=== PATIENT | male | born 1985 | race Caucasian/White ===

== ENCOUNTER 2020-09-26 15:26 | Emergency (ER) | payer OTHER, MEDICAID ==
--- NOTE | 2020-09-26 16:22 | ED Physician Documentation ---
PD HPI UPPER EXT INJURY - Stated complaint Stated Complaint: RT ELBOW INJ - Chief complaint Chief Complaint: Ext Problem - History obtained from History obtained from: Family - History of Present Illness Location: Right, Elbow Type of injury: Fall Where injury occurred: Work Timing - onset: How many weeks ago (1) Timing - duration: Weeks (1) Timing - details: Abrupt onset, Still present Improved by: Rest, Immobilization Worsened by: Moving, Palpating Associated symptoms: Swelling, Discolored. No: Weakness, Numbness Contributing factors: No: Anticoagulated Similar symptoms before: Has not had sx before Recently seen: Not recently seen - Additonal information Additional information: Previously well 34-year-old male who does not have a doctor was at work and he slipped on a wet floor and fell onto his right elbow. He had a small laceration to this. He did not come in for that laceration and now he has a bit of an infection surrounding this. This incident occurred about 1 week ago. The patient had a rough night of sleep last night because of this pain waking him up. This morning he noted that there is redness around the entire elbow. He did have some serous drainage from this last night. He has not had fever and he has not otherwise been ill. He does not feel like he broke a bone in his elbow. Review of Systems Constitutional: denies: Fever Eyes: denies: Decreased vision Ears: denies: Ear pain Nose: denies: Congestion Throat: denies: Sore throat Cardiac: denies: Chest pain / pressure, Palpitations Respiratory: denies: Dyspnea, Cough GI: denies: Abdominal Pain, Nausea, Vomiting, Diarrhea : denies: Dysuria, Frequency Skin: reports: Laceration (s). denies: Rash Musculoskeletal: reports: Extremity pain, Extremity swelling. denies: Neck pain, Back pain Neurologic: denies: Generalized weakness, Focal weakness, Numbness PD PAST MEDICAL HISTORY - Present Medications Home Medications: Ambulatory Orders Medication Instructions Recorded Confirmed Amox/Clav 875/125 [Augmentin] 1 each PO Q12H #14 tablet 09/26/20 - Allergies Allergies/Adverse Reactions: Allergies Allergy/AdvReac Type Severity Reaction Status Date / Time No Known Drug Allergies Allergy Verified 09/26/20 15:41 PD ED PE NORMAL - General General: Alert and oriented X 3, No acute distress, Well developed/nourished - HEENT HEENT: Atraumatic, PERRL, EOMI - Cardiac Cardiac: No murmur - Derm Derm: Normal color, Warm and dry, No rash - Extremities Extremities: No deformity, No edema, Other (There is erythema to the olecranon process and a 2 cm laceration that is healing and without obvious drainage. 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 No evidence of abscess formation. We will treat him for cellulitis with Keflex and expect resolution. The patient indicates he has had trouble with keflex previously and prefers amoxicillin. He is prescribe augmentin. Departure - Departure Disposition: 01 Home, Self Care Clinical Impression: Cellulitis Qualifiers: Site of cellulitis: extremity Site of cellulitis of extremity: upper extremity Laterality: right Qualified Code(s): L03.113 - Cellulitis of right upper limb Condition: Stable Instructions: ED Infec Skin Cellulitis Follow-Up: [facility] [Provider Group] Prescriptions: Amox/Clav 875/125 [Augmentin] 1 each PO Q12H #14 tablet Forms: Activity restrictions Discharge Date/Time: 09/26/20 16:40
--- NOTE | 2020-09-26 16:39 | XRAY Report ---
PROCEDURE: Elbow 2 View RT INDICATIONS: fall TECHNIQUE: 2 views of the elbow were acquired. COMPARISON: None FINDINGS: Bones: No fractures or dislocations. No suspicious bony lesions. Soft tissues: Minimal elbow joint effusion. No suspicious soft tissue calcifications. IMPRESSION: No visualized acute fracture or dislocation. However, occult injury cannot be excluded. Recommend raphael rt interval imaging follow-up in 7-10 days as clinically indicated for additional evaluation. Reviewed by: Kamilah Dill MD on 09/26/2020 4:38 PM PDT Approved by: Kamilah Dill MD on 09/26/2020 4:38 PM PDT Station ID: [id number]
== END 2020-09-26 16:40 | disposition home or self-care (01) ==
LOC: ED 15:26
DX: L03.113 Cellulitis of right upper limb (principal); S51.011A Laceration without foreign body of right elbow, initial encounter; W01.0XXA Fall on same level from slipping, tripping and stumbling without subsequent striking against object, initial encounter; Y99.0 Civilian activity done for income or pay
CPT/HCPCS: 1040M; 99283; 99284

== ENCOUNTER 2020-10-19 07:48 | Emergency (ER) | payer OTHER, MEDICAID ==
--- NOTE | 2020-10-19 08:02 | ED Physician Documentation ---
PD HPI SKIN - Stated complaint Stated Complaint: RT ELBOW WOUND - Chief complaint Chief Complaint: Ext Problem - History obtained from History obtained from: Patient - History of Present Illness Timing - onset: How many weeks ago (3) Timing - duration: Weeks (3) Timing - details: Gradual onset, Still present, Waxing and waning (He states the area filled with some fluid and it opened and drained when he fell on it again. It drained again last week. Continues with redness and some tender. No more fluid accumulation, but is having some ongoing weeping. Minimal improvement initially with just the oral abx, more with draining.) Location: RUE (posterior elbow) Quality / character: Discolored (red), Swelling, Draining (at times) Improved by: No: Antibiotics Associated symptoms: No: Fever, Myalgias, Joint pain (just the skin back of elbow) Contributing factors: No: Insect bite /sting Similar symptoms before: Has not had sx before Recently seen: Emergency Dept Review of Systems Constitutional: denies: Fever, Chills Neurologic: denies: Focal weakness, Numbness PD PAST MEDICAL HISTORY - Past Medical History Cardiovascular: None Endocrine/Autoimmune: None - Present Medications Home Medications: Ambulatory Orders Medication Instructions Recorded Confirmed Amox/Clav 875/125 [Augmentin] 1 each PO Q12H #14 tablet 09/26/20 Amox/Clav 875/125 [Augmentin] 1 each PO BID #10 tablet 10/19/20 Mupirocin Calcium [Mupirocin] 1 applic TP TID #15 gm 10/19/20 - Allergies Allergies/Adverse Reactions: Allergies Allergy/AdvReac Type Severity Reaction Status Date / Time No Known Drug Allergies Allergy Verified 10/19/20 07:59 PD ED PE NORMAL - Vitals Vital signs reviewed: Yes - General General: Alert and oriented X 3, No acute distress (somewhat anxious), Well developed/nourished - Derm Derm: Normal color, Warm and dry - Extremities Extremities: Other (right posterior elbow with skin small ulceration without fluctuance. No effusion in bursa nor joint. Full extension of the elbow. There is surrounding redness of the wound about 3 cm diameter. No axillary nodes. ) - Neuro Neuro: No motor deficit, No sensory deficit Results - Vitals Vitals: Oxygen O2 Source Room air PD MEDICAL DECISION MAKING - ED course Complexity details: reviewed old records, considered differential (I think he would benefit with more staph coverage and had not really improved with the Augmentin initially. Suggested doxycycline but he firmly prefers a penicillin- based.), d/w patient Departure - Departure Disposition: 01 Home, Self Care Clinical Impression: Cellulitis of right elbow Condition: Stable Record reviewed to determine appropriate education?: Yes Instructions: ED Infec Skin Cellulitis Prescriptions: Amox/Clav 875/125 [Augmentin] 1 each PO BID #10 tablet Mupirocin Calcium [Mupirocin] 1 applic TP TID #15 gm Comments: Clean the elbow wound 2-3 times daily and apply a light bit of mupirocin antibiotic ointment. Augmentin antibiotic twice daily for the next 5 days until this seems completely cleared. The Augmentin antibiotic did not clear this the first go around so I do not think it will clear completely this time either. I would prefer giving you an antibiotic called doxycycline. Return if this is not completely cleared and we can try a different antibiotic. Discharge Date/Time: 10/19/20 09:06
[2020-10-19 08:10] VITALS: BP 128/82
[2020-10-19] MEDS ORDERED: MUPIROCIN 2% OINT 1 GM TOP STA (08:28)
[2020-10-19] MEDS: DOXYCYCLINE 100 MG TABLET PO STA ×2 (08:36→09:02)
== END 2020-10-19 09:06 | disposition home or self-care (01) ==
LOC: ED 07:48
DX: L03.113 Cellulitis of right upper limb (principal); L98.499 Non-pressure chronic ulcer of skin of other sites with unspecified severity
CPT/HCPCS: 99282; 99283; A9270

== ENCOUNTER 2020-12-26 15:45 | Outpatient (CLI) | payer MEDICAID | END 2020-12-26 15:46 | disposition critical access hospital (66) | LOC: EMS 15:45 | DX: S01.91XA Laceration without foreign body of unspecified part of head, initial encounter (principal); V18.4XXA Pedal cycle driver injured in noncollision transport accident in traffic accident, initial encounter; Y93.55 Activity, bike riding; Y92.828 Other wilderness area as the place of occurrence of the external cause | CPT/HCPCS: A0425; A0429; A0999 ==

== ENCOUNTER 2020-12-26 16:01 | Emergency (ER) | payer MEDICAID ==
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
[2020-12-26] MEDS ORDERED: IBUPROFEN 600 MG TABLET PO STA (16:16)
[2020-12-26] MEDS ORDERED: ACETAMINOPHEN 325 MG TABLET PO STA (16:16)
[2020-12-26] MEDS ORDERED: LIDOCAINE-EPINEPH-TETRACAINE 3 ML SYRINGE TOP STA (16:19)
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
[2020-12-26 18:07] VITALS: BP 136/89
== END 2020-12-26 18:17 | disposition home or self-care (01) ==
LOC: EDUNIT# → ED 16:01
DX: S01.81XA Laceration without foreign body of other part of head, initial encounter (principal); S00.83XA Contusion of other part of head, initial encounter; S01.01XA Laceration without foreign body of scalp, initial encounter; S01.21XA Laceration without foreign body of nose, initial encounter; S50.312A Abrasion of left elbow, initial encounter; S50.311A Abrasion of right elbow, initial encounter; S80.212A Abrasion, left knee, initial encounter; S80.211A Abrasion, right knee, initial encounter; V18.0XXA Pedal cycle driver injured in noncollision transport accident in nontraffic accident, initial encounter; Y93.55 Activity, bike riding; Y92.410 Unspecified street and highway as the place of occurrence of the external cause
CPT/HCPCS: 12013; 36415; 70450; 72125; 99282; 99284; A9270

== ENCOUNTER 2020-12-28 07:20 | Emergency (ER) | payer MEDICAID ==
[2020-12-28 07:28] VITALS: BP 135/72
[2020-12-28] MEDS ORDERED: ACETAMINOPHEN 325 MG TABLET PO STA (07:45)
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
== END 2020-12-28 09:15 | disposition home or self-care (01) ==
LOC: ED 07:20
DX: M25.511 Pain in right shoulder (principal); V18.0XXA Pedal cycle driver injured in noncollision transport accident in nontraffic accident, initial encounter; Y93.55 Activity, bike riding; M62.441 Contracture of muscle, right hand; G09 Sequelae of inflammatory diseases of central nervous system
CPT/HCPCS: 73030; 99283; A9270

== ENCOUNTER 2021-01-05 15:16 | Emergency (ER) | payer MEDICAID ==
[2021-01-05 15:34] VITALS: BP 142/73
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
== END 2021-01-05 15:45 | disposition home or self-care (01) ==
LOC: ED 15:16
DX: Z48.02 Encounter for removal of sutures (principal)
CPT/HCPCS: 99281

== ENCOUNTER 2021-03-07 09:50 | Emergency (ER) | payer MEDICAID ==
[2021-03-07 10:00] VITALS: BP 147/91
--- NOTE | 2021-03-07 10:41 | ED Physician Documentation ---
History of Present Illness - Stated complaint Stated Complaint: DIZZY - Chief complaint Chief Complaint: Neuro - History obtained from History obtained from: Patient - History of Present Illness Timing: How many weeks ago (1) - Additonal information Additional information: 35-year-old male with a prior history of spinal meningitis has developed some lightheadedness and dizziness and states that he has had this maybe 4 times previously and he is now experiencing this again. He denies a change in his vision is with head movement. Denies any hearing loss or tinnitus. Denies any cough or congestion. Review of Systems Constitutional: denies: Fever Eyes: denies: Decreased vision Ears: denies: Ear pain Nose: denies: Congestion Throat: denies: Sore throat Cardiac: denies: Chest pain / pressure, Palpitations Respiratory: denies: Dyspnea, Cough GI: denies: Abdominal Pain, Nausea, Vomiting : denies: Dysuria, Frequency Skin: denies: Rash Musculoskeletal: denies: Neck pain, Back pain, Extremity pain Neurologic: reports: Other (dizziness and light headedness). denies: Generalized weakness, Focal weakness, Numbness, Headache, Head injury, LOC PD PAST MEDICAL HISTORY - Past Medical History Cardiovascular: None Respiratory: None Neuro: None, Head injury Endocrine/Autoimmune: None GI: GERD, Ulcers : None HEENT: None Psych: Anxiety Musculoskeletal: None Derm: None - Past Surgical History Past Surgical History: No - Present Medications Home Medications: Ambulatory Orders Medication Instructions Recorded Confirmed No Known Home Medications 03/07/21 03/07/21 - Allergies Allergies/Adverse Reactions: Allergies Allergy/AdvReac Type Severity Reaction Status Date / Time No Known Drug Allergies Allergy Verified 03/07/21 09:57 - Social History Does the pt smoke?: No Smoking Status: Never smoker Does the pt drink ETOH?: No Does the pt have substance abuse?: No - Immunizations Immunizations are current?: Yes - POLST Patient has POLST: No PD ED PE NORMAL - Vitals Vital signs reviewed: Yes (hypertensive ) - General General: Alert and oriented X 3, No acute distress, Well developed/nourished - HEENT HEENT: Atraumatic, PERRL, EOMI - Neck Neck: Supple, no meningeal sign, No bony TTP - Cardiac Cardiac: RRR, No murmur - Respiratory Respiratory: No respiratory distress, Clear bilaterally - Abdomen Abdomen: Normal bowel sounds, Soft, Non tender, Non distended, No organomegaly - Back Back: No CVA TTP, No spinal TTP - Derm Derm: Normal color, Warm and dry, No rash - Extremities Extremities: Other (There is contraction deformity of the right hand from the prior spinal meningitis.) - Neuro Neuro: Alert and oriented X 3, sewer digger 2-12 intact, Normal speech Eye Opening: Spontaneous Motor: Obeys Commands Verbal: Oriented GCS Score: 15 - Psych Psych: Normal mood, Normal affect Results - Vitals Vitals: Vital Signs - 24 hr 03/07/21 09:57 Temperature 36.4 C L Heart Rate 91 Respiratory 18 Rate Blood Pressure 147/91 H O2 Saturation 99 Oxygen O2 Source Room air Procedures - IVC sono (time) 1025 Bedside IVC sono: IVC measures (cm) (0.81), IVC collapsed c insp (cm) (complete), Significant dehydration (est 2 liter deficit) PD MEDICAL DECISION MAKING - ED course Complexity details: reviewed results, re-evaluated patient, considered differential, d/w patient ED course: 35-year-old male who presents to the emerge department with dizziness his chief complaint is no evidence of nystagmus on examination he has normal-appearing TMs and he is found to be dehydrated on interrogation of the inferior vena cava. On further history the patient indicates that he strictly drinks coffee. He drinks several cups of coffee per day. The patient is not vomiting does not have diarrhea and feels that he will be able to hydrate at home without any difficulty. He requests to be discharged. Departure - Departure Disposition: 01 Home, Self Care Clinical Impression: Dehydration determined by examination Condition: Stable Instructions: ED Dehydration Follow-Up: [facility] [Provider Group] Comments: Nabeel today we found you to be significantly dehydrated when we looked at your inferior vena cava. This is likely the cause of your symptoms and the recommendation is to drink additional fluids. My recommendation is to reduce your coffee intake to less than 3 cups/day. Coffee consumption of over 3 cups/day can cause diuresis and lead to dehydration. Discharge Date/Time: 03/07/21 11:06
== END 2021-03-07 11:06 | disposition home or self-care (01) ==
LOC: ED 09:50
DX: E86.0 Dehydration (principal)
CPT/HCPCS: 99281; 99282

== ENCOUNTER 2021-11-24 08:00 | Outpatient (CLI) | payer MEDICAID ==
[2021-11-24 23:51] LABS: CHLAMYDIA TRACHOMATIS DNA NEGATIVE (NEGATIVE); NEISSERIA GONORRHOEAE DNA NEGATIVE (NEGATIVE)
== END 2021-11-24 23:59 | disposition home or self-care (01) ==
LOC: LAB.N 08:00
PROVIDERS: ATTEND Physician Assistant
DX: R30.0 Dysuria (principal)
CPT/HCPCS: 87491; 87591; 87661